=== PATIENT | female | born 1995 | race Caucasian/White ===

== ENCOUNTER 2022-05-21 10:15 | Inpatient (IN) ==
--- NOTE | 2022-05-21 10:56 | Emergency Department Note ---
History of Present Illness General Chief complaint: Shortness of Breath/Dyspnea Stated complaint: SHOULDER PAIN, SOB,FATIGUE Time Seen by Provider: 05/21/22 10:38 Source: patient, RN notes reviewed and old records reviewed Mode of arrival: ambulatory Limitations: no limitations History of Present Illness This patient is 27-year-old female comes in after having left shoulder pain since last week it radiates into her neck. She says it goes into her chest on that side as well ibuprofen made it feel better and she feels pretty good at pre sent she has been fatigued no definite fever chills no cough she feels short of breath on exertion only when she goes up steps. No sick contact she is had the COVID-vaccine and booster. She talk to her lead investigator today who recommended she come to the ER. She tells me she was admitted for 1 week in [place] in January and she said she had a work-up there which was unremarkable with exception of they thought she may have had lupus. She was on prednisone but this switched recently to CellCept starting May 01. She does a history of pleural effusions. No history of PE/DVT. Denies . No blood or melena in her stool. No trauma or injury Past Med/Surg History Medical History (Updated 05/21/22 @ 14:51 by Carmelina Cho PA-C) Pericardial effusion Surgical History (Updated 05/21/22 @ 14:51 by Carmelina Cho PA-C) History of ankle surgery Family History (Updated 05/21/22 @ 14:50 by Carmelina Cho PA-C) Mother Hypertension Father Dyslipidemia Social History Smoking Status: Never smoker Preferred Language: Indonesian Feels Safe at Home: Yes Immunizations: Medical historypleural effusions. Possible lupus Allergiespenicillin Historyshe is from [place] but works in [employer]. Specialists are in [place] due to her inpatient care there in January Review of Systems A total of 10 systems reviewed and were otherwise negative Physical Exam Vital Signs Vital Signs - 24 hr 05/21/22 10:19 05/21/22 10:16 05/21/22 10:48 Temperature 36.8 C Temperature Source Temporal Artery Scan Pulse Rate 113 H Pulse Rate [Apical] Pulse Rhythm [Apical] Pulse Strength [Apical] Respiratory Rate 18 Respiratory Effort / Characteristics Non-Labored Non-Labored Spontaneous Respiratory Depth Normal Normal Respiratory Pattern Regular Regular Blood Pressure 160/81 H Blood Pressure [Left Arm] Blood Pressure Mean 107 Blood Pressure Mean [Left Arm] Pulse Oximetry 99 98 Oxygen Delivery Method Room Air Room Air Sepsis Recent Fever Within 48 Hours No Sepsis New/Unexplained Change in Mental Status No Sepsis Action Taken by Nursing No Action Required 05/21/22 12:16 05/21/22 11:01 05/21/22 11:30 Temperature Temperature Source Pulse Rate 103 H 104 H Pulse Rate [Apical] 99 H Pulse Rhythm [Apical] Regular Pulse Strength [Apical] Normal Respiratory Rate 16 31 H 41 H Respiratory Effort / Characteristics Non-Labored Respiratory Depth Normal Respiratory Pattern Blood Pressure Blood Pressure [Left Arm] 132/73 Blood Pressure Mean Blood Pressure Mean [Left Arm] 92 Pulse Oximetry 98 Oxygen Delivery Method Room Air Sepsis Recent Fever Within 48 Hours Sepsis New/Unexplained Change in Mental Status Sepsis Action Taken by Nursing 05/21/22 12:00 05/21/22 12:26 05/21/22 12:27 Temperature Temperature Source Pulse Rate 109 H 107 H Pulse Rate [Apical] Pulse Rhythm [Apical] Pulse Strength [Apical] Respiratory Rate 39 H 22 Respiratory Effort / Characteristics Respiratory Depth Respiratory Pattern Blood Pressure 132/73 Blood Pressure [Left Arm] Blood Pressure Mean 92 Blood Pressure Mean [Left Arm] Pulse Oximetry Oxygen Delivery Method Sepsis Recent Fever Within 48 Hours Sepsis New/Unexplained Change in Mental Status Sepsis Action Taken by Nursing 05/21/22 12:30 05/21/22 13:00 05/21/22 14:00 Temperature Temperature Source Pulse Rate 120 H 111 H Pulse Rate [Apical] 104 H Pulse Rhythm [Apical] Pulse Strength [Apical] Respiratory Rate 22 25 H 20 Respiratory Effort / Characteristics Respiratory Depth Respiratory Pattern Blood Pressure Blood Pressure [Left Arm] 121/57 L Blood Pressure Mean Blood Pressure Mean [Left Arm] 78 Pulse Oximetry 98 Oxygen Delivery Method Sepsis Recent Fever Within 48 Hours Sepsis New/Unexplained Change in Mental Status Sepsis Action Taken by Nursing 05/21/22 15:21 Temperature Temperature Source Pulse Rate Pulse Rate [Apical] Pulse Rhythm [Apical] Pulse Strength [Apical] Respiratory Rate Respiratory Effort / Characteristics Respiratory Depth Respiratory Pattern Blood Pressure Blood Pressure [Left Arm] Blood Pressure Mean Blood Pressure Mean [Left Arm] Pulse Oximetry 98 Oxygen Delivery Method Room Air Sepsis Recent Fever Within 48 Hours Sepsis New/Unexplained Change in Mental Status Sepsis Action Taken by Nursing General: Well developed well nourished young female who appears in no acute distress, breathing comfortably on room air. Normal speech HEENT: Normal cephalic atraumatic. Pupils are equal round and reactive to light. Extraocular movements are intact. Oropharynx is pink with moist mucous membranes. No swelling of the mouth lips or tongue. Neck: Supple with a midline trachea. No meningeal signs or stiffness, no JVD or bruits. No Stridor. Chest: Clear to auscultation bilaterally. No wheezes or rhonchi. No increased work of breathing. Heart: Regular rate and rhythm without murmurs or gallops. Abdomen: Soft nontender, nondistended without rebound guarding or rigidity. Extremities: No cyanosis clubbing or edema. No calf tenderness or assymetry Spine/Back. Non tender to palpation. No CVA tenderness Skin: Good turgor without rashes. Neurologic exam: Cranial nerves two through 12 are intact. Motor and sensation are intact and symmetrical throughout. Course Administered Medications Discontinued Medications Ioversol (Optiray 320 125ml) 120 ml IV ONCE ONE Stop: 05/21/22 13:15 Last Admin: 05/21/22 13:14 Dose: 120 ml Documented By: AARON Medical Decision Making Differential Diagnosis Acute coronary syndrome, arrhythmia, pleural effusion, PE, pneumothorax, lupus, pericardial effusion, electrolyte or metabolic abnormality musculoskeletal, infection, COVID Medical Records Attestation: I reviewed the patient's medical records. Home Medications Current Medication List: was personally reviewed by me Laboratory Data Attestation: I reviewed the patient's lab results. Result diagrams: 05/21/22 11:03 05/21/22 11:03 Lab Results 05/21/22 05/21/22 05/21/22 Range/Units 11:03 11:03 11:03 WBC 10.48 (4.8-10.8) K/ul RBC 4.41 (3.93-5.22) M/uL Hgb 12.7 (12.0-16.0) g/dl Hct 38.2 (34.1-44.9) % MCV 86.6 (80.0-100.0) fL MCH 28.8 (25.0-34.0) pg MCHC 33.2 (32.0-36.0) g/dL RDW Std Deviation 43.4 (36.4-46.3) fL RDW Coeff of Tabitha 14.0 (11.5-14.5) % Plt Count 335 (130-400) K/uL MPV 9.5 (9.4-12.3) fL Immature Gran % (Auto) 0.5 % Neut % (Auto) 72.4 % Lymph % (Auto) 14.5 % Weber % (Auto) 11.9 % Eos % (Auto) 0.3 % Baso % (Auto) 0.4 % Neut # (Auto) 7.59 H (1.4-6.5) K/uL Lymph # (Auto) 1.52 (1.2-3.4) K/uL Weber # (Auto) 1.25 H (0.24-0.82) K/uL Eos # (Auto) 0.03 (0-0.50) K/uL Baso # (Auto) 0.04 (0-0.2) K/uL Immature Gran # (Auto) 0.05 H (0.00-0.02) K/uL PT 10.8 (9.0-12.0) Seconds INR 1.0 (0.9-1.1) APTT 30.6 (21.0-31.0) Seconds PTT Ratio 1.1 D-Dimer 1560 H* (0-500) ug/L FEU Sodium 136 (136-145) mmol/L Potassium 4.1 (3.5-5.1) mmol/L Chloride 104 (98-107) mmol/L Carbon Dioxide 25 (21-32) mmol/L Anion Gap 7 (3-11) BUN 8 (6-23) mg/dl Creatinine 0.68 (0.6-1.2) mg/dl Est Cr Clr Drug Dosing 116.7 ml/min Est GFR ( Amer) 139.9 ml/min Est GFR (Non-Af Amer) 120.7 ml/min BUN/Creatinine Ratio 11.8 (10-20) Glucose 97 (70-99(Fasting)) mg/dl Calcium 9.3 (8.5-10.1) mg/dl Total Bilirubin 0.5 (0.2-1.0) mg/dl AST 15 (13-39) U/L ALT 25 (7-52) U/L Alkaline Phosphatase 45 (34-104) U/L Troponin I High Sens < 2.3 (0-14) pg/ml Total Protein 7.0 (6.0-8.3) gm/dl Albumin 3.9 (3.4-5.0) gm/dl Globulin 3.1 (2.5-4.0) gm/dl Albumin/Globulin Ratio 1.3 (0.9-2) Lipase 16 (11-82) U/L HCG, Qual (Negative) 05/21/22 05/21/22 Range/Units 11:03 14:35 WBC (4.8-10.8) K/ul RBC (3.93-5.22) M/uL Hgb (12.0-16.0) g/dl Hct (34.1-44.9) % MCV (80.0-100.0) fL MCH (25.0-34.0) pg MCHC (32.0-36.0) g/dL RDW Std Deviation (36.4-46.3) fL RDW Coeff of Tabitha (11.5-14.5) % Plt Count (130-400) K/uL MPV (9.4-12.3) fL Immature Gran % (Auto) % Neut % (Auto) % Lymph % (Auto) % Weber % (Auto) % Eos % (Auto) % Baso % (Auto) % Neut # (Auto) (1.4-6.5) K/uL Lymph # (Auto) (1.2-3.4) K/uL Weber # (Auto) (0.24-0.82) K/uL Eos # (Auto) (0-0.50) K/uL Baso # (Auto) (0-0.2) K/uL Immature Gran # (Auto) (0.00-0.02) K/uL PT (9.0-12.0) Seconds INR (0.9-1.1) APTT (21.0-31.0) Seconds PTT Ratio D-Dimer (0-500) ug/L FEU Sodium (136-145) mmol/L Potassium (3.5-5.1) mmol/L Chloride (98-107) mmol/L Carbon Dioxide (21-32) mmol/L Anion Gap (3-11) BUN (6-23) mg/dl Creatinine (0.6-1.2) mg/dl Est Cr Clr Drug Dosing ml/min Est GFR ( Amer) ml/min Est GFR (Non-Af Amer) ml/min BUN/Creatinine Ratio (10-20) Glucose (70-99(Fasting)) mg/dl Calcium (8.5-10.1) mg/dl Total Bilirubin (0.2-1.0) mg/dl AST (13-39) U/L ALT (7-52) U/L Alkaline Phosphatase (34-104) U/L Troponin I High Sens < 2.3 (0-14) pg/ml Total Protein (6.0-8.3) gm/dl Albumin (3.4-5.0) gm/dl Globulin (2.5-4.0) gm/dl Albumin/Globulin Ratio (0.9-2) Lipase (11-82) U/L HCG, Qual Negative (Negative) Imaging Data Attestation: I personally reviewed and interpreted this imaging study as kt barbosa: My Impression: Chest x-raymild cardiomegaly but otherwise no acute infiltrate, failure, pneumothorax seen Radiologist's Impression: Chest X-Ray 05/21/22 10:48 XR chest 1V portable HISTORY: Atypical Chest Pain COMPARISON: None. FINDINGS: There are low lung volumes. The correct silhouette is mildly enlarged. No pneumothorax. No pleural effusions. Increased markings at the lung bases favor subsegmental atelectasis given the low lung volumes. No evidence for pulmonary edema. IMPRESSION: Mild cardiomegaly. ACT 112: Negative or not required by law. Electronically signed by: Chris Salamanca M.D. 05/21/2022 11:17 AM Chest CTA 05/21/22 12:40 CT angio chest PE protocol CLINICAL HISTORY: Shortness of breath COMPARISON STUDY: Portable chest from 05/21/2022 CT DOSE: 286.80 mGy.cm TECHNIQUE: CT Angio of the chest was performed.followed by image post processing with coronal, and sagittal MIP reformats. Contrast Volume: Optiray 320, 120 ml FINDINGS: Vasculature: There is homogeneous perfusion of the pulmonary vasculature bilaterally. No intraluminal filling defects or evidence for pulmonary embolus is seen. Airway: The airway is clear. No endobronchial lesion is identified. Lungs and pleural: There is minimal left pleural effusion and pleural thickening at the left lung base with minimal left basilar atelectasis. Very minimal right basilar atelectasis is also present. The lungs are otherwise clear of acute alveolar opacities, air bronchograms or pulmonary nodules. Mediastinum: There is no evidence for pathologic adenopathy. The heart size is within normal limits. The thoracic aorta is within normal limits. There is a sma ll to moderate-sized pericardial effusion present. Upper abdomen:The adrenal glands are normal bilaterally. Osseous structures: There is no acute osseous pathology. Impression: 1. No CTA evidence for pulmonary embolus. 2. Small left pleural effusion and pleural thickening. 3. Minimal bibasilar atelectasis, left greater than right. 4. Small pericardial effusion which is definitely abnormal for the patient's age. ACT 112: Negative or not required by law. Electronically signed by: Julian Osman M.D. 05/21/2022 1:36 PM ECG Data Indication: + chest pain Rate (beats per minute): 105 Rhythm: + sinus tachycardia ECG Intervals/blocks: + Normal QRS, + Normal QT and + Normal CT ECG [place]: + Normal ECG ST segments: + Nonspecific ST abnormalities ECG Findings: + Other (Nonspecific ST and T wave abnormality); no PACs or no PVCs Comparison ECG Date: no prior available Additional Comments: EKG #2: Sinus tachycardia [address] abnormalities may be early repull. No significant change compared to EKG #1. MDM Narrative This patient comes in as described above. She was diagnosed with presumptive lupus not too long ago. She has chest pain. She looks well on exam and has stable vitals she was initially a tachycardic slightly at 113 but has an O2 sat of 100% her lungs are clear. I did order chest x-ray, EKG, and multiple blood testing she was reassessed frequently. X-ray does not show any significant pleural effusions, findings to suggest congestive heart failure pneumonia or pneumothorax she does have some mild cardiomegaly. She has no white count or fever to suggest infection. She has no significant anemia. She has no significant electrolyte or metabolic abnormalities. test was negative. Her EKG does not suggest ischemia and her troponin was negative despite having symptoms for a couple days. Her D-dimer was elevated and I did do a CTA of the chest to evaluate for possible PE and other potential pathology. I did a second EKG and it looks like the first there are some nonspeficic ST abnormalities. CTA shows no PE however she does have a mild to moderate pericardial effusion. This may be related to her underlying lupus/rheumatoid these. I did order a second troponin I do think she should be admitted/observed given her ongoing symptoms. Continuous cardiac monitoring: Orders placed in the EMR for continuous cardiac monitoring. Upon my interpretation patient was noted to be sinus tachycardia at a rate of 110 Impression & Plan Pericardial effusion, Sinus tachycardia, SLE (systemic lupus erythematosus), Chest pain, Lab test negative for COVID-19 virus Discharge Plan Visit Data Chief Complaint: Shortness of Breath/Dyspnea Stated Complaint: SHOULDER PAIN, SOB,FATIGUE ED Provider: Rayray Chen Discharge Problem: Pericardial effusion, Sinus tachycardia, SLE (systemic lupus erythematosus), Chest pain, Lab test negative for COVID-19 virus Forms Stand Alone Forms: [facility] Referrals Referrals: Desirae Clinton DO [Primary Care Provider] - : SLE (systemic lupus erythematosus) Qualifiers: Systemic lupus erythematosus type: unspecified Systemic lupus erythematosus organ involvement: unspecified Qualified Code(s): M32.9 - Systemic lupus erythematosus, unspecified Chest pain Qualifiers: Chest pain type: unspecified Qualified Code(s): R07.9 - Chest pain, unspecified
--- NOTE | 2022-05-21 11:19 | XRay Report ---
XR chest 1V portable HISTORY: Atypical Chest Pain COMPARISON: None. FINDINGS: There are low lung volumes. The correct silhouette is mildly enlarged. No pneumothorax. No pleural effusions. Increased markings at the lung bases favor subsegmental atelectasis given the low lung volumes. No evidence for pulmonary edema. IMPRESSION: Mild cardiomegaly. ACT 112: Negative or not required by law. Electronically signed by: Chris Salamanca M.D. 05/21/2022 11:17 AM
[2022-05-21 11:27] LABS: Basophils # (auto) 0.04 K/uL (0-0.2); Basophils % (auto) 0.4 %; Eosinophils # (auto) 0.03 K/uL (0-0.50); Eosinophils % (auto) 0.3 %; Hematocrit (blood only) 38.2 % (34.1-44.9); Hemoglobin 12.7 g/dl (12.0-16.0); Immature Granulocytes # (auto) 0.05 K/uL (0.00-0.02); Immature Granulocytes % (auto) 0.5 %; Lymphocytes # (auto) 1.52 K/uL (1.2-3.4); Lymphocytes % (auto) 14.5 %; Mean Corpuscular Hemoglobin 28.8 pg (25.0-34.0); Mean Corpuscular Hgb Conc 33.2 g/dL (32.0-36.0); Mean Corpuscular Volume 86.6 fL (80.0-100.0); Mean Platelet Volume 9.5 fL (9.4-12.3); Monocytes # (auto) 1.25 K/uL (0.24-0.82); Monocytes % (auto) 11.9 %; Neutrophils # (auto) 7.59 K/uL (1.4-6.5); Neutrophils % (auto) 72.4 %; Platelet Count 335 K/uL (130-400); RDW Standard Deviation 43.4 fL (36.4-46.3); Red Blood Count 4.41 M/uL (3.93-5.22); White Blood Count 10.48 K/ul (4.8-10.8)
[2022-05-21 11:43] LABS: Partial Thromboplastin Ratio 1.1; Partial Thromboplastin Time 30.6 Seconds (21.0-31.0); Prothrombin Time 10.8 Seconds (9.0-12.0)
[2022-05-21 11:47] LABS: Alanine Aminotransferase 25 U/L (7-52); Albumin Globulin Ratio 1.3 (0.9-2); Albumin Level 3.9 gm/dl (3.4-5.0); Alkaline Phosphatase 45 U/L (34-104); Anion Gap 7 (3-11); Aspartate Aminotransferase 15 U/L (13-39); BUN Creatinine Ratio 11.8 (10-20); Bilirubin,Total 0.5 mg/dl (0.2-1.0); Blood Urea Nitrogen 8 mg/dl (6-23); Calcium 9.3 mg/dl (8.5-10.1); Carbon Dioxide 25 mmol/L (21-32); Chloride 104 mmol/L (98-107); Creatinine Clr Calc Pharmacy 116.7 ml/min; Est GFR (African American) 139.9 ml/min; Est GFR (Non-African American) 120.7 ml/min; Globulin 3.1 gm/dl (2.5-4.0); Glucose 97 mg/dl (70-99(Fasting)); Lipase 16 U/L (11-82); Potassium 4.1 mmol/L (3.5-5.1); Sodium 136 mmol/L (136-145)
[2022-05-21 11:52] LABS: Pregnancy Test, Serum Negative (Negative)
[2022-05-21 11:53] LABS: Troponin I High Sensitivity < 2.3 pg/ml (0-14)
[2022-05-21 12:51] LABS: D Dimer 1560 ug/L FEU (0-500)
[2022-05-21] MEDS ORDERED: OPTIRAY 320 125ml IV ONE (13:14)
--- NOTE | 2022-05-21 13:38 | CT Scan Report ---
CT angio chest PE protocol CLINICAL HISTORY: Shortness of breath COMPARISON STUDY: Portable chest from 05/21/2022 CT DOSE: 286.80 mGy.cm TECHNIQUE: CT Angio of the chest was performed.followed by image post processing with coronal, and s agittal MIP reformats. Contrast Volume: Optiray 320, 120 ml FINDINGS: Vasculature: There is homogeneous perfusion of the pulmonary vasculature bilaterally. No intraluminal filling defects or evidence for pulmonary embolus is seen. Airway: The airway is clear. No endobronchial lesion is identified. Lungs and pleural: There is minimal left pleural effusion and pleural thickening at the left lung bas e with minimal left basilar atelectasis. Very minimal right basilar atelectasis is also present. The lungs are otherwise clear of acute alveolar opacities, air bronchograms or pulmonary nodules. Mediastinum: There is no evidence for pathologic adenopathy. The heart size is within normal limits. The thoracic aorta is within normal limits. There is a small to moderate-sized pericardial effusion p resent. Upper abdomen:The adrenal glands are normal bilaterally. Osseous structures: There is no acute osseous pathology. Impression: 1. No CTA evidence for pulmonary embolus. 2. Small left pleural effusion and pleural thickening. 3. Minimal bibasilar atelectasis, left greater than right. 4. Small pericardial effusion which is definitely abnormal for the patient's age. ACT 112: Negative or not required by law. Electronically signed by: Julian Osman M.D. 05/21/2022 1:36 PM
[2022-05-21] MEDS ORDERED: SODIUM CHLORIDE 0.9% 1000ML 250 ML IV ONE (14:51)
--- NOTE | 2022-05-21 14:53 | Electrocardiogram Report ---
Test Reason : Blood Pressure : / mmHG Vent. Rate : 106 BPM Atrial Rate : 106 BPM P-R Int : 124 ms QRS Dur : 074 ms QT Int : 308 ms P-R-T Axes : 021 050 077 degrees QTc Int : [address] elevation, consider early repolarization, pericarditis, or injury Nonspecific ST and T wave abnormality Abnormal ECG No previous ECGs available Confirmed by Alin Spann ([id number]) on 05/21/2022 2:53:30 PM Referred By: REFERRED SELF Confirmed By:Alin Spann
--- NOTE | 2022-05-21 15:00 | History & Physical Report ---
Date of Service May 21, 2022 Assessment & Plan (1) Sinus tachycardia: (2) Joint pain: (3) Pericardial effusion: (4) Pleural effusion: Plan Ms. Rachel Ayala is a 27 year old female who presented to the [facility] by the recommendation of her Flange Machine Operator with complaints of shoulder pain, chest pain, and back pain. She has a PMH that includes:pericardial effusion, pleural effusions, exercise-induced asthma and eczema. She had a recent hospitalization at [facility] in January 2022 for where she received a work up for SLE;however, was not officially diagnosed. She did have a left sided pleural effusions and moderate pericardial effusion at the time; however, her ECHO had a normal EF and no evidence of cardiac tamponade. She was started on Rocephin and Zithromax. Her ESR and CRP were also elevated at the time. Awaiting records that have been requested from [facility]'s HIM department. Requested on 05/21/22 at 1620. Sinus Tachycardia: -tachycardic 120-130 at rest. -EKG with some diffuse ST elevation and questionable inferior/lateral ST elevation. -EKG compared and is unchanged. -Starting on 0.9 NS IV 100mL/hour x 3L. -ECHO ordered -Initial Troponin negative, will trend. -Per discussion with Dr. Zavaleta; hold on Cards consult until further data obtained. Joint Pain: -Presumably diagnosed with SLE in January 2022 at [facility]; D/C records have been requested. -Shoulder joint pain, on the left side. No uveitis. No other joints affected on exam. Question autoimmune process. -Was started on steroids and weaned off and transitioned to CellCept starting at the beginning of April 2022; which in reviewing this medication there is about a 10% change of cardiovascular edema to occur with CellCept. -In January patient did have a thoracentesis with + VILMA in pleural fluid. -Lymes/Anaplasmosis lab tests ordered. Pt denies any recent rashes. -CRP and ESR levels ordered. -Will await further reports to determine if added value for obtaining HLA-B27. Pericardial Effusion: -Mild on CTA. -EKG in ED ST with some ST elevation; consider early repolarization, per icarditis, or injury Nonspecific ST and T wave abnormality Abnormal ECG No previous ECGs available -ECHO ordered -Repeat EKG in AM/PRN Pleural Effusion: -SOB with exertion; at rest on RA with SpO2 98% -D-Dimer elevated 1560 in ED; CTA ordered and negative for PE. -In January patient did have a thoracentesis with + VILMA in pleural fluid. -Duplex US B/L LE doppler ordered and pending. Diarrhea: -Pt reports having some stool changes; having a bowel movement 2-3 times per day; no mucus or other abnormal odors -Pt has never had a colonoscopy -Stool Culture with CDiff ordered- recent history with being on antibiotics Disposition: -PCP: Dr. Clinton in [place] -Code Status: Full Code Plan for admission for further monitoring while records are obtained and additional diagnostic and lab testing obtained. History of Present Illness Chief Complaint: fatigue Primary Care Provider: Desirae Clinton DO Ms. Rachel Ayala is a 27 year old female who presented to the [facility] by the recommendation of her Flange Machine Operator with complaints of shoulder pain, chest pain, and back pain. She has a PMH that includes:pericardial effusion, pleural effusions, exercise-induced asthma and eczema. She had a recent hospitalization at [facility] in January 2022 for where she received a work up for SLE;however, was not officially diagnosed. She did have a left sided pleural effusions and moderate pericardial effusion at the time; however, her ECHO had a normal EF and no evidence of cardiac tamponade. She was started on Rocephin and Zithromax. Her ESR and CRP were also elevated at the time. Reportedly, she is seen as an outpatient by Flange Machine Operator: Dr. Liz, and Therapeutic Assistant Dr. Bethea. 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 She was started on steroids and more recently was started on CellCept on May 01 as a DMARD treatment. In the ED, her D-Dimer was elevated 1560 and a CTA ruled out a PE. She denies MAURO, dizziness, palpitations, visual or auditory changes, abdominal pain, trauma, gait disturbances. On evaluation, she is tachycardic at rest in the 120-130's and is experiencing should shoulder joint pain, but otherwise AROM with all joints in her extremities without difficulty. Discharge summary requested from [facility]. The patient will be admitted under medicine service for further evaluation. Please see A/P for further details regarding this admission. Allergies Allergy/AdvReac Type Severity Reaction Status Date / Time Penicillins Allergy Intermediate Rash Verified 05/21/22 16:26 Home Medications Medication Instructions Recorded Confirmed Type ibuprofen 200 mg tablet 400 mg PO DIRECTED PRN 05/21/22 05/21/22 History PAIN/FEVER ipratropium 0.5 mg-albuterol 3 mg 3 ml inhalation DIRECTED PRN 05/21/22 05/21/22 History (2.5 mg base)/3 mL nebulization Shortness Of Breath Or Wheezing soln mycophenolate mofetil 500 mg tablet 500 mg PO BID 05/21/22 05/21/22 History Past Med/Surg History Medical History (Updated 05/21/22 @ 16:49 by RACHEL Echeverria) Joint pain Pericardial effusion Pleural effusion Surgical History History of ankle surgery Family History Mother Hypertension Father Dyslipidemia Social History Smoking Status: Never smoker Preferred Language: Egyptian Feels Safe at Home: Yes Review of Systems Review of Systems: Neuro: (-) MAURO, dizziness, falls, cognitive changes HEENT: (-) visual or auditory changes, dysphagia CV: (-) palpitations, swelling Resp: (+) SOB with exertion GI: (+) upper abdominal pain, N/V/D, (-) bloody/Tarry stools : (-) urinary changes Skin: (-) new skin changes Musculoskeletal: (+) left shoulder joint discomfort (-) distal joint discomfort or inflammation (-) sciatica Physical Exam Physical Exam: Neuro: AAOx4 HEENT: head normocephalic, PERRLA, moist mucus membranes CV: S1/S2, (-) JVD, (-) edema, (-) murmer Resp: Lungs CTA in all kent, on RA GI: Abdomen S/NT/ND, Ax4 bowel sounds Skin: (-) rashes, erythema Musculoskeletal: PROM and AROM of knee, ankle, shoulder and wrist joints. Results & Data Results & Data ([facility]) Vital Signs (Past 12 Hours) Vital Signs Temp Pulse Pulse Resp BP BP Pulse Ox 05/21/22 14:00 104 H 20 121/57 L 98 05/21/22 13:00 111 H 25 H 05/21/22 12:30 120 H 22 05/21/22 12:27 132/73 05/21/22 12:26 107 H 22 05/21/22 12:00 109 H 39 H 05/21/22 11:30 104 H 41 H 05/21/22 11:01 103 H 31 H 05/21/22 12:16 99 H 16 132/73 98 05/21/22 10:16 98 05/21/22 10:19 36.8 C 113 H 18 160/81 H 99 O2 Del Method 05/21/22 14:00 05/21/22 13:00 05/21/22 12:30 05/21/22 12:27 05/21/22 12:26 05/21/22 12:00 05/21/22 11:30 05/21/22 11:01 05/21/22 12:16 Room Air 05/21/22 10:16 Room Air 05/21/22 10:19 Room Air Laboratory Results Laboratory Results WBC 10.48 K/ul (4.8-10.8) 05/21/22 11:03 RBC 4.41 M/uL (3.93-5.22) 05/21/22 11:03 Hgb 12.7 g/dl (12.0-16.0) 05/21/22 11:03 Hct 38.2 % (34.1-44.9) 05/21/22 11:03 MCV 86.6 fL (80.0-100.0) 05/21/22 11:03 MCH 28.8 pg (25.0-34.0) 05/21/22 11:03 MCHC 33.2 g/dL (32.0-36.0) 05/21/22 11:03 RDW Std Deviation 43.4 fL (36.4-46.3) 05/21/22 11:03 RDW Coeff of Tabitha 14.0 % (11.5-14.5) 05/21/22 11:03 Plt Count 335 K/uL (130-400) 05/21/22 11:03 MPV 9.5 fL (9.4-12.3) 05/21/22 11:03 Immature Gran % (Auto) 0.5 % 05/21/22 11:03 Neut % (Auto) 72.4 % 05/21/22 11:03 Lymph % (Auto) 14.5 % 05/21/22 11:03 Dixon % (Auto) 11.9 % 05/21/22 11:03 Eos % (Auto) 0.3 % 05/21/22 11:03 Baso % (Auto) 0.4 % 05/21/22 11:03 Neut # (Auto) 7.59 K/uL (1.4-6.5) H 05/21/22 11:03 Lymph # (Auto) 1.52 K/uL (1.2-3.4) 05/21/22 11:03 Dixon # (Auto) 1.25 K/uL (0.24-0.82) H 05/21/22 11:03 Eos # (Auto) 0.03 K/uL (0-0.50) 05/21/22 11:03 Baso # (Auto) 0.04 K/uL (0-0.2) 05/21/22 11:03 Immature Gran # (Auto) 0.05 K/uL (0.00-0.02) H 05/21/22 11:03 PT 10.8 Seconds (9.0-12.0) 05/21/22 11:03 INR 1.0 (0.9-1.1) 05/21/22 11:03 APTT 30.6 Seconds (21.0-31.0) 05/21/22 11:03 PTT Ratio 1.1 05/21/22 11:03 D-Dimer 1560 ug/L FEU (0-500) H* 05/21/22 11:03 Sodium 136 mmol/L (136-145) 05/21/22 11:03 Potassium 4.1 mmol/L (3.5-5.1) 05/21/22 11:03 Chloride 104 mmol/L (98-107) 05/21/22 11:03 Carbon Dioxide 25 mmol/L (21-32) 05/21/22 11:03 Anion Gap 7 (3-11) 05/21/22 11:03 BUN 8 mg/dl (6-23) 05/21/22 11:03 Creatinine 0.68 mg/dl (0.6-1.2) 05/21/22 11:03 Est Cr Clr Drug Dosing 116.7 ml/min 05/21/22 11:03 Est GFR ( Amer) 139.9 ml/min 05/21/22 11:03 Est GFR (Non-Af Amer) 120.7 ml/min 05/21/22 11:03 BUN/Creatinine Ratio 11.8 (10-20) 05/21/22 11:03 Glucose 97 mg/dl (70-99(Fasting)) 05/21/22 11:03 Calcium 9.3 mg/dl (8.5-10.1) 05/21/22 11:03 Total Bilirubin 0.5 mg/dl (0.2-1.0) 05/21/22 11:03 AST 15 U/L (13-39) 05/21/22 11:03 ALT 25 U/L (7-52) 05/21/22 11:03 Alkaline Phosphatase 45 U/L (34-104) 05/21/22 11:03 Troponin I High Sens < 2.3 pg/ml (0-14) 05/21/22 14:35 Total Protein 7.0 gm/dl (6.0-8.3) 05/21/22 11:03 Albumin 3.9 gm/dl (3.4-5.0) 05/21/22 11:03 Globulin 3.1 gm/dl (2.5-4.0) 05/21/22 11:03 Albumin/Globulin Ratio 1.3 (0.9-2) 05/21/22 11:03 Lipase 16 U/L (11-82) 05/21/22 11:03 HCG, Qual Negative (Negative) 05/21/22 11:03 Diagnostic Findings Chest X-Ray 05/21/22 10:48 XR chest 1V portable HISTORY: Atypical Chest Pain COMPARISON: None. FINDINGS: There are low lung volumes. The correct silhouette is mildly enlarged. No pneumothorax. No pleural effusions. Increased markings at the lung bases favor subsegmental atelectasis given the low lung volumes. No evidence for pulmonary edema. IMPRESSION: Mild cardiomegaly. ACT 112: Negative or not required by law. Electronically signed by: Chris Salamanca M.D. 05/21/2022 11:17 AM Chest CTA 05/21/22 12:40 CT angio chest PE protocol CLINICAL HISTORY: Shortness of breath COMPARISON STUDY: Portable chest from 05/21/2022 CT DOSE: 286.80 mGy.cm TECHNIQUE: CT Angio of the chest was performed.followed by image post processing with coronal, and sagittal MIP reformats. Contrast Volume: Optiray 320, 120 ml FINDINGS: Vasculature: There is homogeneous perfusion of the pulmonary vasculature bilaterally. No intraluminal filling defects or evidence for pulmonary embolus is seen. Airway: The airway is clear. No endobronchial lesion is identified. Lungs and pleural: There is minimal left pleural effusion and pleural thickening at the left lung base with minimal left basilar atelectasis. Very minimal right basilar atelectasis is also present. The lungs are otherwise clear of acute alveolar opacities, air bronchograms or pulmonary nodules. Mediastinum: There is no evidence for pathologic adenopathy. The heart size is within normal limits. The thoracic aorta is within normal limits. There is a small to moderate-sized pericardial effusion present. Upper abdomen:The adrenal glands are normal bilaterally. Osseous structures: There is no acute osseous pathology. Impression: 1. No CTA evidence for pulmonary embolus. 2. Small left pleural effusion and pleural thickening. 3. Minimal bibasilar atelectasis, left greater than right. 4. Small pericardial effusion which is definitely abnormal for the patient's age. ACT 112: Negative or not required by law Electronically signed by: Julian Osman M.D. 05/21/2022 1:36 PM ECG Additional Comments: Rate : 106 BPM M P-R Int : 124 ms QT Int : 308 ms QTc Int : 409 ms QRS Dur : [address] elevation, consider early repolarization, pericarditis, or injury Nonspecific ST and T wave abnormality Abnormal ECG No previous ECGs available; will repeat in AM. Code Status & VTE Plan Code Status Full code in the event of cardiac or pulmonary arrest VTE Prophylaxis Plan VTE Prophylaxis will be ordered: Yes Supervising Physician Co-Signing Physician Notes Attending addendum: The patient was seen and examined in emergency room She has been complaining of profound weakness associated with left shoulder pain and nonspecific pain involving the forearms She was recently in [facility] with chest pain and shortness of breath and noted to have pleural and pericardial effusion and was evaluated by certified meeting professional and clinical manager home care and also sap technical developer She has been undergoing tests to rule out and/or rule in SLE as per the patient and tried a course of prednisone and now on CellCept Denies any chest pain, palpitation or any shortness of breath On examination Very anxious Hemodynamically stable with tachycardia at around 104 Chest-minimally decreased breath sounds both sides without any wheezing or crackles HeartS1, S2 no murmur Abdomensoft, nontender and bowel sound present Extremitiesno edema Musculoskeletal systemno acute arthritis and/or arthralgia involving any of the joint Skinno rash Admission labs, EKG and imaging studies reviewed Notable findings elevated D-dimer of more than 1000 with negative PE Mild pericardial effusion and pleural effusion Will get urine to rule out any infection, inflammatory markers CRP and ESR, ultrasound to rule out DVT and echo to rule out any significant effusion [facility] Agree with assessment and plan as outlined above by Velma Zavaleta
[2022-05-21] MEDS: SODIUM CHLORIDE 0.9% 1000ML 1,000 ML IV SCH (17:30)
[2022-05-21 19:28] LABS: Appearance Urine Clear (Clear); Bacteria Urine Automated 1+ (Negative); Bilirubin Urine Negative (Negative); Blood Urine Trace (Negative); Color Urine Yellow; Epithelial Cell Urine Auto >30 /lpf (0-5); Glucose Urine UA Negative (Negative); Ketones Urine 3+ (Negative); Leukocyte Esterase Urine Trace (Negative); Nitrite Urine Negative (Negative); Protein Urine Negative (Negative); Specific Gravity Urine > 1.045 (1.000-1.030); Urobilinogen Urine Negative (Negative); pH Urine 5.5 (4.5-7.5)
[2022-05-21] MEDS ORDERED: ALBUT/IPRATROP 3MG/0.5MG NEB 3 ML VIAL INH PRN (20:10)
[2022-05-21 20:38] LABS: Lyme Ab IgG w/WB Rflx Negative (Negative); Lyme Ab IgM w/WB Rflx Negative (Negative)
[2022-05-21] MEDS: MYCOPHENOLATE MOFETIL 250 MG CAP PO SCH (21:46)
[2022-05-22] MEDS: SODIUM CHLORIDE 0.9% 1000ML 1,000 ML IV SCH ×2 (03:37→13:51)
[2022-05-22 06:11] LABS: Hematocrit (blood only) 32.6 % (34.1-44.9); Hemoglobin 10.7 g/dl (12.0-16.0); Mean Corpuscular Hemoglobin 28.6 pg (25.0-34.0); Mean Corpuscular Hgb Conc 32.8 g/dL (32.0-36.0); Mean Corpuscular Volume 87.2 fL (80.0-100.0); Mean Platelet Volume 9.6 fL (9.4-12.3); Platelet Count 304 K/uL (130-400); RDW Coefficient of Variation 13.8 % (11.5-14.5); RDW Standard Deviation 43.5 fL (36.4-46.3); Red Blood Count 3.74 M/uL (3.93-5.22); White Blood Count 12.13 K/ul (4.8-10.8)
--- NOTE | 2022-05-22 06:37 | Ultrasound Report ---
BILATERAL LOWER EXTREMITY VENOUS DOPPLER HISTORY: Acute chest pain with shortness of breath. Screening study for possible DVT. r/o DVT COMPARISON STUDY: None. FINDINGS: There is normal compressibility, flow, and augmentation within the bilateral lower extremit y deep venous systems. IMPRESSION: No DVT within the right or left lower extremity. ACT 112: Negative or not required by law. Electronically signed by: Keanu Petit M.D. 05/22/2022 6:34 AM
[2022-05-22 06:41] LABS: BUN Creatinine Ratio 9.4 (10-20); C Reactive Protein 19.91 mg/dl (0-0.5); Calcium 7.8 mg/dl (8.5-10.1); Creatinine Clr Calc Pharmacy 124.8 ml/min; Est GFR (African American) 142.7 ml/min; Est GFR (Non-African American) 123.2 ml/min
--- NOTE | 2022-05-22 08:52 | Cardiology Consultation ---
Date of Consultation May 22, 2022 Assessment & Plan (1) Acute pericarditis: (2) Sinus tachycardia: (3) SLE (systemic lupus erythematosus): (4) Chest pain: (5) Pericardial effusion: Plan The pathophysiology and treatment options were discussed with the patient at great lengths Patient currently being worked up for rheumatologic disorder. Small, loculated anterior pericardial effusion is present on echocardiogram without hemodynamic significance. Will treat for acute pericarditis. Ibuprofen 600 mg p.o. every 8 hours x30 days Colchicine 0.6 mg p.o. twice daily x3 months We will also add Protonix daily for GI prophylaxis Recommend following up with rheumatology as scheduled History of Present Illness Reason for Consultation: Chest pain Requesting Physician: Dr. Alamo Attending Physician: Robert Anderson MD Allergies Allergy/AdvReac Type Severity Reaction Status Date / Time Penicillins Allergy Intermediate Rash Verified 05/21/22 16:26 Home Medications Medication Instructions Recorded Confirmed Type ibuprofen 200 mg tablet 400 mg PO DIRECTED PRN 05/21/22 05/21/22 History PAIN/FEVER ipratropium 0.5 mg-albuterol 3 mg 3 ml inhalation DIRECTED PRN 05/21/22 05/21/22 History (2.5 mg base)/3 mL nebulization Shortness Of Breath Or Wheezing soln mycophenolate mofetil 500 mg tablet 500 mg PO BID 05/21/22 05/21/22 History Patient History Medical History Joint pain Pericardial effusion Pleural effusion Surgical History History of ankle surgery Family History Mother Hypertension Father Dyslipidemia Social History Smoking Status: Never smoker Hx Alcohol Use: Yes Alcohol type: beer Hx Substance Use: Yes Preferred Language: Gibraltarian Communication Ability: Effective Model Builder Display Required: No Beliefs That Will Affect Care: None Current Living Situation: Alone Other Information That Helps Us Care for You: No Feels Safe at Home: Yes Safety Concerns: Feels Safe At This Time Assistive Devices: None Results & Data ([facility]) Vital Signs (Past 12 Hours) Vital Signs Temp Pulse Pulse Resp BP Pulse Ox O2 Del Method 05/22/22 07:42 37.2 C 107 H 18 109/53 L 97 Room Air 05/22/22 06:40 37.3 C 102 H 18 104/78 97 Room Air 05/22/22 03:33 37.4 C 108 H 18 113/68 96 Room Air 05/21/22 23:19 114 H 05/21/22 23:09 38.1 C H 119 H 18 107/76 96 Room Air (1) SLE (systemic lupus erythematosus) Systemic lupus erythematosus organ involvement: unspecified Systemic lupus erythematosus type: unspecified Qualified Code(s): M32.9 - Systemic lupus erythematosus, unspecified (2) Chest pain Chest pain type: unspecified Qualified Code(s): R07.9 - Chest pain, unspecified
[2022-05-22] MEDS ORDERED: PANTOprazole 40 MG TAB PO SCH (09:00)
[2022-05-22] MEDS ORDERED: COLCHICINE 0.6 MG TAB PO SCH (09:00)
[2022-05-22] MEDS: IBUPROFEN 600 MG TAB PO SCH ×2 (09:24→14:44)
[2022-05-22] MEDS: MYCOPHENOLATE MOFETIL 250 MG CAP PO SCH (09:24)
[2022-05-22 10:56] LABS: Adenovirus F 40/41 PCR Not Detected (NotDetected); Astrovirus PCR Not Detected (NotDetected); Campylobacter PCR Not Detected (NotDetected); Cryptosporidium PCR Not Detected (NotDetected); Cyclospora cayetanensis PCR Not Detected (NotDetected); Entamoeba histolytica PCR Not Detected (NotDetected); Enteroaggregative E.coli(EAEC) Not Detected (NotDetected); Enteropathogenic E.coli (EPEC) Not Detected (NotDetected); Enterotoxigenic E.coli (ETEC) Not Detected (NotDetected); Giardia lamblia PCR Not Detected (NotDetected); Norovirus GI/GII PCR Not Detected (NotDetected); Plesiomonas shigelloides PCR Not Detected (NotDetected); Rotavirus A PCR Not Detected (NotDetected); Salmonella PCR Not Detected (NotDetected); Sapovirus PCR Not Detected (NotDetected); Shiga-like Toxin E.coli (STEC) Not Detected (NotDetected); Shigella/Enteroinvasive E.coli Not Detected (NotDetected); Vibrio cholerae PCR Not Detected (NotDetected); Vibrio species PCR Not Detected (NotDetected); Yersinia enterocolitica PCR Not Detected (NotDetected)
[2022-05-22 11:50] LABS: Cdiff Antigen Negative; Cdiff Toxin A+B Negative Cdiff Toxin (Negative)
--- NOTE | 2022-05-22 14:06 | Electrocardiogram Report ---
Test Reason : Blood Pressure : / mmHG Vent. Rate : 105 BPM Atrial Rate : 105 BPM P-R Int : 126 ms QRS Dur : 082 ms QT Int : 282 ms P-R-T Axes : 041 047 098 degrees QTc Int : 372 ms Poor data quality, interpretation may be adversely affected Sinus tachycardia Diffuse Minor Nonspecific T wave abnormality Abnormal ECG No previous ECGs available Confirmed by Gaudencio Rendon ([id number]) on 05/22/2022 2:06:01 PM Referred By: REFERRED SELF Confirmed By:Gaudencio Rendon
--- NOTE | 2022-05-22 17:05 | Discharge Summary ---
Date of Service May 22, 2022 Admission HPI Per Admitting Provider Ms. Rachel Ayala is a 27 year old female who presented to the [facility] [place] by the recommendation of her Clinic Lpn with complaints of shoulder pain, chest pain, and back pain. She has a PMH that includes:pericardial effusion, pleural effusions, exercise-induced asthma and eczema. She had a recent hospitalization at [facility] in January 2022 for where she received a work up for SLE;however, was not officially diagnosed. She did have a left sided pleural effusions and moderate pericardial effusion at the time; however, her ECHO had a normal EF and no evidence of cardiac tamponade. She was started on Rocephin and Zithromax. Her ESR and CRP were also elevated at the time. Reportedly, she is seen as an outpatient by Clinic Lpn: Dr. Liz, and Manager Of Disaster Recovery Dr. Bethea. 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 She was started on steroids and more recently was started on CellCept on May 01 as a DMARD treatment. In the ED, her D-Dimer was elevated 1560 and a CTA ruled out a PE. She denies MAURO, dizziness, palpitations, visual or auditory changes, abdominal pain, trauma, gait disturbances. On evaluation, she is tachycardic at rest in the 120-130's and is experiencing should shoulder joint pain, but otherwise AROM with all joints in her extremities without difficulty. Discharge summary requested from [facility]. The patient will be admitted under medicine service for further evaluation. Please see A/P for further details regarding this admission. Admission Exam Per Admitting Provider Neuro: AAOx4 HEENT: head normocephalic, PERRLA, moist mucus membranes CV: S1/S2, (-) JVD, (-) edema, (-) murmur Resp: Lungs CTA in all kent, on RA GI: Abdomen S/NT/ND, Ax4 bowel sounds Skin: (-) rashes, erythema Musculoskeletal: PROM and AROM of knee, ankle, shoulder and wrist joints. Principal Diagnosis Acute pericarditis, pericardial effusion, possibly secondary to lupus Discharge Exam General: WD/WN Young female, in no acute distress HEENT: head normocephalic, atraumatic, EOMI, PERRL, moist mucus membranes CV: S1/S2, (-) JVD, (-) edema, (-) murmur Resp: Lungs CTAB no wheezing, diminished lung sounds at L base, breathing comfortably on RA GI: Abdomen S/NT/ND, Ax4 bowel sounds Skin: (-) rashes, erythema Musculoskeletal: PROM and AROM of knee, ankle, shoulder and wrist joints. Discharge Data Allergies Allergy/AdvReac Type Severity Reaction Status Date / Time Penicillins Allergy Intermediate Rash Verified 05/21/22 16:26 Consultations 05/22/22 07:53 Consult Cardiology Routine 05/22/22 16:51 Burn CD for patient Stat Ordered Studies 05/21/22 12:40 CT angio chest PE protocol Stat FINDINGS: Vasculature: There is homogeneous perfusion of the pulmonary vasculature bilaterally. No intraluminal filling defects or evidence for pulmonary embolus is seen. Airway: The airway is clear. No endobronchial lesion is identified. Lungs and pleural: There is minimal left pleural effusion and pleural thickening at the left lung base with minimal left basilar atelectasis. Very minimal right basilar atelectasis is also present. The lungs are otherwise clear of acute alveolar opacities, air bronchograms or pulmonary nodules. Mediastinum: There is no evidence for pathologic adenopathy. The heart size is within normal limits. The thoracic aorta is within normal limits. There is a small to moderate-sized pericardial effusion present. Upper abdomen:The adrenal glands are normal bilaterally. Osseous structures: There is no acute osseous pathology. Impression: 1. No CTA evidence for pulmonary embolus. 2. Small left pleural effusion and pleural thickening. 3. Minimal bibasilar atelectasis, left greater than right. 4. Small pericardial effusion which is definitely abnormal for the patient's age. CXR FINDINGS: There are low lung volumes. The correct silhouette is mildly enlarged. No pneumothorax. No pleural effusions. Increased markings at the lung bases favor subsegmental atelectasis given the low lung volumes. No evidence for pulmonary edema. IMPRESSION: Mild cardiomegaly. 05/21/22 15:54 US leg [US venous doppler LE BI] Routine FINDINGS: There is normal compressibility, flow, and augmentation within the bilateral lower extremity deep venous systems. IMPRESSION: No DVT within the right or left lower extremity. Hospital Course (1) Sinus tachycardia: (2) Joint pain: (3) Pericardial effusion: (4) Pleural effusion: Plan Ms. Rachel Jamie is a 27 year old female who presented to the [facility] [place] by the recommendation of her Clinic Lpn with complaints of shoulder pain, chest pain, and back pain. She has a PMH that includes:pericardial effusion, pleural effusions, exercise-induced asthma and eczema. She had a recent hospitalization at [facility] in January 2022 for where she received a work up for SLE;however, was not officially diagnosed. She did have a left sided pleural effusions and moderate pericardial effusion at the time; however, her ECHO had a normal EF and no evidence of cardiac tamponade. She was started on Rocephin and Zithromax. Her ESR and CRP were also elevated at the time. Awaiting records that have been requested from [facility]'s HIM department. Requested on 05/21/22 at 1620. Sinus Tachycardia: -tachycardic 120-130 at rest. -EKG with some diffuse ST elevation and questionable inferior/lateral ST elevation. -EKG compared and is unchanged. -received IVF on admission -Troponin negative x2 -ECHO obtained Small, loculated anterior pericardial effusion is present without hemodynamic significance. Otherwise, normal examination. Joint Pain: -Presumably diagnosed with SLE in January 2022 at [facility]; D/C records have been requested. -Shoulder joint pain, on the left side. No uveitis. No other joints affected on exam. Question autoimmune process. -Was started on steroids and weaned off and transitioned to CellCept starting at the beginning of April 2022; which in reviewing this medication there is about a 10% change of cardiovascular edema to occur with CellCept. -In January patient did have a thoracentesis with + VILMA in pleural fluid. -Lymes/Anaplasmosis lab tests ordered. Pt denies any recent rashes. -CRP and ESR levels ordered. -Patient's joint pain resolved in ED. Currently feels well. Will defer further work-up to patient's supervisor reclamation. Pericardial Effusion: -Mild on CTA. -EKG in ED ST with some ST elevation; consider early repolarization, aaron carditis, or injury Nonspecific ST and T wave abnormality Abnormal ECG No previous ECGs available -ECHO obtained, as above Cardiology consulted The pathophysiology and treatment options were discussed with the patient at great lengths Patient currently being worked up for rheumatologic disorder. Small, loculated anterior pericardial effusion is present on echocardiogram without hemodynamic significance. Will treat for acute pericarditis. Ibuprofen 600 mg p.o. every 8 hours x30 days Colchicine 0.6 mg p.o. twice daily x3 months We will also add Protonix daily for GI prophylaxis Recommend following up with rheumatology as scheduled Pleural Effusion: -SOB with exertion; at rest on RA with SpO2 98% -D-Dimer elevated 1560 in ED; CTA ordered and negative for PE. -In January patient did have a thoracentesis with + VILMA in pleural fluid. -Duplex US B/L LE doppler obtained - negative for DVT Diarrhea: -Pt reports having some stool changes; having a bowel movement 2-3 times per day; no mucus or other abnormal odors -Pt has never had a colonoscopy -Stool Culture with CDiff ordered- recent history with being on antibiotics -c. diff gene detected, toxin negative -the rest of stool pcr negative -follow up as outpt Disposition: Plan to DC home -PCP: Dr. Clinton in [place] -Code Status: Full Code Total Time Total Time Spent Total Time Spent (In Minutes): 40 Discharge Plan Discharge Items Patient Disposition: Home - Self-Care Reason For Visit: PERICARDIAL EFFUSION Discharge Diagnosis: Acute pericarditis, pericardial effusion, possibly secondary to lupus Activity: Per Instructions section Non-emergency contact: Primary Care Provider and Specialist Call non-emergency contact if: you have any medication questions and your symptoms worsen Follow-up/Referrals: Desirae Clinton DO [Primary Care Provider] - (Date & Time 05/28/2022 10:40 AM Provider Sierra Ahumada DO Department [facility] ) Diet: Regular Addtl Attending Provider Instructions: Follow-up with your primary care doctor, the appointment was scheduled for you for May 28. Make sure to follow-up with your outpatient healthcare providers, including your supervisor reclamation, manager sap, helicopter officer. Per cardiology: Take Ibuprofen 600 mg p.o. every 8 hours x30 days Take Colchicine 0.6 mg p.o. twice daily x3 months Take Protonix daily to protect your stomach from side affects of ibuprofen. Pending Studies at Discharge: Yes Studies:: Anaplasma PCR, Babesia PCR Urine culture Stand-Alone Forms: My [employer], Smoking Cessation Medications and DC Order Prescriptions: New ibuprofen 600 mg Tablet 600 mg PO Q8 30 Days Qty: 90 0RF pantoprazole 40 mg Tablet,Delayed Release (Dr/Ec) 40 mg PO QAM Qty: 30 0RF colchicine [Colcrys] 0.6 mg Tablet 0.6 mg PO BID 30 Days Qty: 60 0RF Continued ipratropium-albuterol 0.5 mg-3 mg(2.5 mg base)/3 mL solution for nebulization 3 ml INHALATION DIRECTED PRN (Reason: Shortness Of Breath Or Wheezing) mycophenolate mofetil 500 mg tablet 500 mg PO BID Discontinued ibuprofen 200 mg Tablet 400 mg PO DIRECTED PRN (Reason: PAIN/FEVER) Discharge Orders: Discharge Order (Routine); Ordered 05/22/22 Ordered By: Robert Anderson Admission Data Admit Date/Time: 05/21/22 15:30 Attending Provider: Robert Anderson Admit Provider: Camille Zavaleta Primary Care Provider: Desirae Clinton Other Providers: Camille Zavaleta ; Vick Rose
[2022-05-25 17:02] LABS: Babesia microti DNA Not Detected (Not Detected)
== END 2022-05-22 18:19 | disposition home or self-care (01) | DRG 546 ==
LOC: ED 10:15 → SUATTDRO 15:30 → 2S 15:30